=== PATIENT | female | born 1975 | race African-American/Black ===

== ENCOUNTER 2018-01-26 21:46 | Emergency (ER) | payer BC, MEDICAID ==
[~2018-01-26] VITALS: Ht 172.7 cm; Wt 89.0 kg
[2018-01-26] MEDS ORDERED: KETOROLAC 60MG/2ML VIAL IM STA (23:57)
[2018-01-27] MEDS ORDERED: BACITRACIN ZINC OINT UDPKT TOP ONE
[2018-01-27] MEDS ORDERED: LIDOCAINE HCL/PF 1% 2ML VIAL INFIL ONE
[2018-01-27] MEDS ORDERED: LIDOCAINE HCL/PF 1% 10 MG/ML 5ML VIAL IJ NR (01:15)
[2018-01-27] MEDS ORDERED: LIDOCAINE HCL/PF 1% 10 MG/ML 5ML VIAL IJ ONE (01:15)
[2018-01-27 03:28] VITALS: BP 109/75
== END 2018-01-27 03:53 | disposition home or self-care (01) ==
LOC: ER 01-27 01:13
DX: S61.512A Laceration without foreign body of left wrist, initial encounter (principal); W25.XXXA Contact with sharp glass, initial encounter; Y93.89 Activity, other specified; Y92.018 Other place in single-family (private) house as the place of occurrence of the external cause
CPT/HCPCS: 12002; 73110; 96372; 99284; J1885; J3490; X7700; Z7610

== ENCOUNTER 2018-01-28 14:13 | Emergency (ER) | payer MEDICAID ==
[~2018-01-28] VITALS: Ht 172.7 cm; Wt 100.8 kg
[2018-01-28 14:39] VITALS: BP 109/85
== END 2018-01-28 15:24 | disposition home or self-care (01) ==
LOC: ER 14:13
DX: S61.512D Laceration without foreign body of left wrist, subsequent encounter (principal); W25.XXXD Contact with sharp glass, subsequent encounter
CPT/HCPCS: 99282

== ENCOUNTER 2018-02-14 12:43 | Emergency (ER) | payer SELFPAY | END 2018-02-14 15:55 | disposition left against medical advice (07) | LOC: ER 12:43 | DX: Z53.21 Procedure and treatment not carried out due to patient leaving prior to being seen by health care provider (principal) ==

== ENCOUNTER 2018-02-16 15:57 | Emergency (ER) | payer SELFPAY ==
[~2018-02-16] VITALS: Ht 172.7 cm; Wt 108.0 kg
[2018-02-16 16:09] VITALS: BP 124/53
== END 2018-02-16 18:35 | disposition home or self-care (01) ==
LOC: ER 15:57
DX: T81.30XD Disruption of wound, unspecified, subsequent encounter (principal); Z98.890 Other specified postprocedural states
CPT/HCPCS: 99281; Z7610

== ENCOUNTER 2018-05-19 09:52 | Emergency (ER) | payer SELFPAY ==
[~2018-05-19] VITALS: Ht 172.7 cm; Wt 91.0 kg
[2018-05-19] MEDS ORDERED: SODIUM CHLORIDE 0.9% 1,000 ML IV ONE (11:20)
[2018-05-19] MEDS ORDERED: ONDANSETRON HCL 4MG/2ML INJ IV ONE (11:30)
[2018-05-19] MEDS ORDERED: MORPHINE SULFATE 4 MG/ML CPJ (NOT FOR IM USE) IV ONE (11:30)
[2018-05-19] MEDS ORDERED: KETOROLAC 30MG/ML VIAL IV ONE (11:30)
[2018-05-19 14:57] LABS: HEMATOCRIT. 25.8 % (36.0-48.0); HEMOGLOBIN. 7.8 g/dL (12.0-16.0); MEAN CORPUSCULAR HEMOGLOBIN 19.8 pg (28.0-32.0); MEAN CORPUSCULAR VOLUME 65.2 fL (81.0-99.0); MEAN PLATELET VOLUME 9.4 fl (7.4-10.4); PLATELET 163 x1000/uL (130-400); RED BLOOD CELL COUNT 3.96 mill/uL (4.2-5.4); RED CELL DISTRIBUTION WIDTH 20.3 % (11.6-14.6)
[2018-05-19 14:59] LABS: CHLORIDE 108 mEq/L (98-107)
[2018-05-19 15:10] LABS: B-HCG QUANTITATIVE < 1 mIU/mL (<3)
[2018-05-19 15:38] LABS: PLATELET ESTIMATE NORMAL
[2018-05-19 16:06] LABS: CLARITY URINE CLEAR (CLEAR); COLOR URINE YELLOW (YELLOW); KETONES URINE 1+ (NEGATIVE); LEUKOCYTE ESTERASE URINE NEGATIVE (NEGATIVE); NITRITE URINE NEGATIVE (NEGATIVE); OCCULT BLOOD URINE 3+ (NEGATIVE); PH URINE >=9.0 (4.5-8.0); PROTEIN URINE TRACE (NEGATIVE); SPECIFIC GRAVITY URINE 1.028 (1.005-1.030)
[2018-05-19 17:04] LABS: HEMATOCRIT. 24.9 % (36.0-48.0); HEMOGLOBIN. 7.6 g/dL (12.0-16.0); MEAN CORPUSCULAR HEMOGLOBIN 19.7 pg (28.0-32.0); MEAN CORPUSCULAR VOLUME 64.5 fL (81.0-99.0); PLATELET 168 x1000/uL (130-400); RED BLOOD CELL COUNT 3.86 mill/uL (4.2-5.4); RED CELL DISTRIBUTION WIDTH 20.4 % (11.6-14.6)
[2018-05-19 17:24] LABS: PLATELET ESTIMATE NORMAL
[2018-05-19 17:37] VITALS: BP 123/71
== END 2018-05-19 17:38 | disposition home or self-care (01) ==
LOC: ER 12:16
DX: D25.2 Subserosal leiomyoma of uterus (principal); N93.8 Other specified abnormal uterine and vaginal bleeding; D64.9 Anemia, unspecified; R03.0 Elevated blood-pressure reading, without diagnosis of hypertension; Z98.890 Other specified postprocedural states; F12.90 Cannabis use, unspecified, uncomplicated
CPT/HCPCS: 36415; 76830; 76856; 80053; 81003; 81025; 83690; 84702; 85025; 86850; 86900; 86901; 96361; 96374; 96375; 99285; J1885; J2270; J2405; J7030

== ENCOUNTER 2018-06-17 09:28 | Inpatient (IN) | payer SELFPAY ==
[~2018-06-17] VITALS: Ht 172.7 cm; Wt 90.7 kg
[2018-06-17] MEDS ORDERED: SODIUM CHLORIDE 0.9% 1,000 ML IV ONE (10:24)
[2018-06-17 11:41] LABS: CHLORIDE 106 mEq/L (98-107); PROTHROMBIN TIME 10.3 sec (9.1-11.1)
[2018-06-17 11:44] LABS: MEAN CORPUSCULAR VOLUME 80.7 fL (81.0-99.0); MEAN PLATELET VOLUME 9.3 fl (7.4-10.4); PLATELET 247 x1000/uL (130-400); RED BLOOD CELL COUNT 2.69 mill/uL (4.2-5.4); RED CELL DISTRIBUTION WIDTH 26.1 % (11.6-14.6)
[2018-06-17] MEDS ORDERED: POTASSIUM CHLORIDE 20MEQ TABLET SR PO ONE (11:45)
[2018-06-17 11:46] LABS: HEMATOCRIT. 21.7 % (36.0-48.0); HEMOGLOBIN. 6.5 g/dL (12.0-16.0)
[2018-06-17 11:56] LABS: HCG SCREEN NEGATIVE
[2018-06-17 12:07] LABS: PLATELET ESTIMATE NORMAL
[2018-06-17 17:34] LABS: CLARITY URINE CLOUDY (CLEAR); COLOR URINE YELLOW (YELLOW); KETONES URINE 1+ (NEGATIVE); LEUKOCYTE ESTERASE URINE NEGATIVE (NEGATIVE); NITRITE URINE NEGATIVE (NEGATIVE); OCCULT BLOOD URINE NEGATIVE (NEGATIVE); PH URINE 6.5 (4.5-8.0); PROTEIN URINE NEGATIVE (NEGATIVE); SPECIFIC GRAVITY URINE 1.013 (1.005-1.030); UROBILINOGEN URINE 0.2 E.U./dL (0.2-1.0)
[2018-06-17 18:08] VITALS: BP 114/71
[2018-06-17] MEDS ORDERED: ASCO500C15 MT (18:22)
[2018-06-17] MEDS ORDERED: FERR325T6 PO (18:22)
[2018-06-17] MEDS ORDERED: IRON SUCROSE COMPLEX 100 MG/5 ML ML IV NR (19:30)
[2018-06-17] MEDS ORDERED: SODIUM CHLORIDE 0.9% 1,000 ML IV SCH (19:33)
[2018-06-17] MEDS ORDERED: ONDANSETRON HCL 4MG/2ML INJ IV PRN (19:45)
[2018-06-17] MEDS ORDERED: MAGNESIUM/ALUMINUM HYDROXIDE/SIMETHICONE 30ML UDC PO PRN (19:45)
[2018-06-17] MEDS ORDERED: DIPHENHYDRAMINE 50MG/ML VIAL IV PRN (19:45)
[2018-06-17] MEDS ORDERED: CLONIDINE 0.1MG TABLET PO PRN (19:45)
[2018-06-17] MEDS ORDERED: ACETAMINOPHEN 325MG TABLET PO PRN (19:45)
[2018-06-17 20:00] VITALS: BP 112/68
[2018-06-17 23:08] VITALS: BP 101/55
[2018-06-17 23:26] VITALS: BP 103/64
[2018-06-18] VITALS (8 sets, daily range): BP systolic 109–137; BP diastolic 59–87
[2018-06-18 05:37] LABS: HEMATOCRIT. 30.1 % (36.0-48.0); HEMOGLOBIN. 9.3 g/dL (12.0-16.0); MEAN CORPUSCULAR HEMOGLOBIN 25.9 pg (28.0-32.0); MEAN CORPUSCULAR VOLUME 83.6 fL (81.0-99.0); PLATELET 252 x1000/uL (130-400); RED BLOOD CELL COUNT 3.61 mill/uL (4.2-5.4); RED CELL DISTRIBUTION WIDTH 22.7 % (11.6-14.6)
[2018-06-18] MEDS ORDERED: POTASSIUM CHLORIDE 20MEQ TABLET SR PO SCH (09:00)
[2018-06-18 14:11] LABS: PLATELET ESTIMATE NORMAL
== END 2018-06-18 17:10 | disposition home or self-care (01) | DRG 663 ==
LOC: ER 10:14 → 6EST 12:01 → EDBEDREQ 12:04 → EDBEDREQTM 12:04 → EDBEDREQSVC 12:04 → ENRESERV 12:43 → 6EST 16:58
PROVIDERS: ADMIT Internal Medicine; ATTEND Internal Medicine
PROC: 30233N1 Transfusion of Nonautologous Red Blood Cells into Peripheral Vein, Percutaneous Approach (ICD-10-PCS; principal; 2018-06-17)
DX: D50.9 Iron deficiency anemia, unspecified (principal); D25.9 Leiomyoma of uterus, unspecified; N94.6 Dysmenorrhea, unspecified; Z83.3 Family history of diabetes mellitus; Z98.891 History of uterine scar from previous surgery
CPT/HCPCS: 36415; 71045; 83605; 84484; 84703; 86850; 86900; 86920; 93005; 99285; J7030; J7040; P9016

== ENCOUNTER 2019-10-12 12:40 | Inpatient (IN) | payer BC, MEDICAID ==
[~2019-10-12] VITALS: Ht 172.7 cm; Wt 93.9 kg
[~2019-10-12 12:40] MED LIST: ASCO500C15 MT; FERR325T6 PO
[2019-10-12 14:50] LABS: BASOPHILS % 0.7 % (0.0-2.0); EOSINOPHILS % 1.6 % (0.0-5.0); HEMATOCRIT. 29.4 % (36.0-48.0); HEMOGLOBIN. 9.1 g/dL (12.0-16.0); LYMPHOCYTES % 32.8 % (20.0-50.0); MEAN CORPUSCULAR HEMOGLOBIN 21.3 pg (28.0-32.0); MEAN CORPUSCULAR VOLUME 69.1 fL (81.0-99.0); MEAN PLATELET VOLUME 8.5 fl (7.4-10.4); MONOCYTES % 7.4 % (2.0-8.0); NEUTROPHILS % 57.5 % (40.0-76.0); PLATELET 320 x1000/uL (130-400); RED BLOOD CELL COUNT 4.26 mill/uL (4.2-5.4); RED CELL DISTRIBUTION WIDTH 19.1 % (11.6-14.6)
[2019-10-12 14:57] LABS: CHLORIDE 107 mEq/L (98-107)
[2019-10-12 15:06] LABS: PLATELET ESTIMATE NORMAL
[2019-10-12] MEDS ORDERED: SODIUM CHLORIDE 0.9% 1,000 ML IV ONE (15:15)
[2019-10-12 17:44] LABS: COLOR URINE YELLOW (YELLOW); KETONES URINE 1+ (NEGATIVE); LEUKOCYTE ESTERASE URINE NEGATIVE (NEGATIVE); NITRITE URINE NEGATIVE (NEGATIVE); OCCULT BLOOD URINE NEGATIVE (NEGATIVE); PROTEIN URINE NEGATIVE (NEGATIVE); SPECIFIC GRAVITY URINE 1.014 (1.005-1.030)
[2019-10-12 17:48] LABS: CLARITY URINE SLIGHTLY HAZY (CLEAR)
[2019-10-12 19:17] LABS: HCG SCREEN NEGATIVE
[2019-10-12 20:45] VITALS: BP 123/49
[2019-10-12 21:18] VITALS: BP 123/49
[2019-10-12] MEDS ORDERED: ACETAMINOPHEN 325MG TABLET PO PRN (22:00)
[2019-10-12] MEDS ORDERED: POTASSIUM CHLORIDE 20MEQ TABLET SR PO NR (23:15)
[2019-10-12 23:44] LABS: CHLORIDE 105 mEq/L (98-107)
[2019-10-12 23:52] LABS: BASOPHILS % 0.9 % (0.0-2.0); EOSINOPHILS % 0.9 % (0.0-5.0); HEMATOCRIT. 31.5 % (36.0-48.0); HEMOGLOBIN. 9.6 g/dL (12.0-16.0); LYMPHOCYTES % 23.5 % (20.0-50.0); MEAN CORPUSCULAR HEMOGLOBIN 21.8 pg (28.0-32.0); MEAN CORPUSCULAR VOLUME 71.5 fL (81.0-99.0); MEAN PLATELET VOLUME 8.9 fl (7.4-10.4); NEUTROPHILS % 67.7 % (40.0-76.0); PLATELET 315 x1000/uL (130-400); RED CELL DISTRIBUTION WIDTH 20.8 % (11.6-14.6)
[2019-10-13] VITALS: BP 121/64
[2019-10-13 04:00] VITALS: BP 109/61
[2019-10-13] MEDS: PANTOPRAZOLE 40MG DR TABLET PO SCH ×2 (06:29→08:27)
[2019-10-13 08:00] VITALS: BP 135/74
[2019-10-13 12:00] VITALS: BP 126/88
[2019-10-13] MEDS ORDERED: FERROUS SULFATE 325MG TABLET PO SCH (12:50)
[2019-10-13] MEDS ORDERED: FERR-71 PO (13:23)
[2019-10-13 14:42] VITALS: BP 126/88
== END 2019-10-13 15:10 | disposition home or self-care (01) | DRG 812 ==
LOC: ER 12:40 → 6EST 19:38 → ENRESERV 19:49
PROVIDERS: ADMIT Internal Medicine; ATTEND Internal Medicine
PROC: 30233N1 Transfusion of Nonautologous Red Blood Cells into Peripheral Vein, Percutaneous Approach (ICD-10-PCS; principal; 2019-10-12)
DX: D64.9 Anemia, unspecified (principal); D25.9 Leiomyoma of uterus, unspecified; E61.1 Iron deficiency; E66.9 Obesity, unspecified; E87.6 Hypokalemia; Z90.710 Acquired absence of both cervix and uterus; Z79.899 Other long term (current) drug therapy
CPT/HCPCS: 36415; 71045; 76830; 76856; 80048; 80053; 81003; 83880; 84484; 84703; 85014; 85018; 85025; 86850; 86900; 86920; 93005; 96360; 96361; 99285; P9016

== ENCOUNTER 2021-07-25 13:12 | Emergency (ER) | payer BC, MEDICAID ==
[~2021-07-25] VITALS: Ht 172.7 cm; Wt 100.0 kg
[~2021-07-25 13:12] MED LIST changes: +FERR-71 PO
[2021-07-25 13:50] VITALS: BP 153/84
[2021-07-25 15:30] LABS: BASOPHILS % 0.4 % (0.0-2.0); EOSINOPHILS % 0.2 % (0.0-5.0); LYMPHOCYTES % 10.1 % (20.0-50.0); MEAN CORPUSCULAR HEMOGLOBIN 28.5 pg (28.0-32.0); MEAN CORPUSCULAR VOLUME 87.7 fL (81.0-99.0); MEAN PLATELET VOLUME 10.2 fl (7.4-10.4); NEUTROPHILS % 84.3 % (40.0-76.0); PLATELET 163 x1000/uL (130-400); RED BLOOD CELL COUNT 4.56 mill/uL (4.2-5.4)
[2021-07-25 15:35] LABS: CHLORIDE 108 mEq/L (98-107)
[2021-07-25 15:36] LABS: HCG SCREEN NEGATIVE
[2021-07-25 19:10] LABS: CLARITY URINE CLEAR (CLEAR); COLOR URINE YELLOW (YELLOW); KETONES URINE NEGATIVE (NEGATIVE); LEUKOCYTE ESTERASE URINE NEGATIVE (NEGATIVE); NITRITE URINE NEGATIVE (NEGATIVE); OCCULT BLOOD URINE TRACE (NEGATIVE); PH URINE 8.5 (4.5-8.0); PROTEIN URINE NEGATIVE (NEGATIVE); SPECIFIC GRAVITY URINE 1.015 (1.005-1.030); UROBILINOGEN URINE 0.2 E.U./dL (0.2-1.0)
== END 2021-07-25 20:30 | disposition left against medical advice (07) ==
LOC: ER 13:12
DX: R10.9 Unspecified abdominal pain (principal)
CPT/HCPCS: 36415; 80053; 81003; 84703; 85025; 86850; 86900; 99283